=== PATIENT | female | born 1975 | race Caucasian/White ===

== ENCOUNTER → 2020-10-13 09:45 | Outpatient (CLI) | payer OTHER, SELFPAY ==
[2020-10-14 08:52] LABS: COVID19 -Nasal RAPID Negative (Negative)
== END ==
PROVIDERS: Family Provider Family Medicine; PCP Family Medicine; Visit Provider Physician Assistant
DX: Z20.822 Contact with and (suspected) exposure to COVID-19 (principal)
CPT/HCPCS: 87635

== ENCOUNTER → 2020-11-24 15:04 | Outpatient (CLI) | payer OTHER, SELFPAY ==
[2020-11-24 16:49] LABS: COVID19 -Nasal RAPID Negative (Negative)
== END ==
PROVIDERS: Family Provider Family Medicine; PCP Family Medicine; Visit Provider Nurse Practitioner
DX: Z01.812 Encounter for preprocedural laboratory examination (principal); Z20.822 Contact with and (suspected) exposure to COVID-19
CPT/HCPCS: 87635

== ENCOUNTER 2020-11-26 14:01 | Day surgery (SDC) | payer OTHER, SELFPAY ==
--- NOTE | 2020-11-26 | PATH_ITS ---
[facility] Accession Number: [id number] . 01 Material submitted: . PART A: colon - ASCENDING COLON POLYP PART B: colon - DESCENDING COLON POLYP . 01 Clinical history: . SDC . 02 Diagnosis: A. Ascending Colon, Polyp: Colonic mucosa with prominent benign lymphoid aggregate. Negative for dysplasia or malignancy. . B. Descending Colon, Polyp: Tubular adenoma. MRV 12/01/2020 1248 Local . 02 Electronically signed: . Jd Gaines MD, PhD, Pathologist NPI- [id number] . 01 Gross description: . Part A: ASCENDING COLON POLYP: Received in formalin is 1 fragment(s) of chavarria, soft tissue measuring 0.3 x 0.2 x 0.2 cm submitted entirely in 1 cassette(s) Part B: DESCENDING COLON POLYP: Received in formalin are 2 fragment(s) of chavarria, soft tissue measuring 0.2 x 0.2 x 0.2 cm to 0.5 x 0.4 x 0.3 cm submitted entirely in 1 cassette(s) /JULIANNA 11/29/2020 0144 Local . 02 Pathologist provided ICD-10: K58.0, K63.5, D12.4 . 02 CPT . 190354, [id number] Performed at: 01 [facility] [address], [place], [place] [id number] MD Jesus Willoughby MD Phone: [phone] Performed at: 02 [facility] [place] [address] [place], [place] [id number] MD Jordana Michael MD Phone: [phone]
--- NOTE | 2020-11-26 08:19 | PM.HP.1 ---
History of Present Illness History of Present Illness Date Patient Seen: 11/26/20 Chief complaint: SDC Narrative: 44-year-old female with history of IBS D seen 07/24/2020 for IBS D and she is due for colon cancer screening due to the family history of colon cancer in her mother. No new GI symptoms since that office visit Exam Narrative Exam Narrative: General: Patient is well developed, not in apparent distress Cardiovascular: Regular rate and rhythm, no murmurs, rubs, or gallops; no evidence of edema; no palpable abdominal aortic aneurysm Gastrointestinal: Normoactive bowel sounds, soft, nontender, nondistended, no rebound tenderness, no hepatosplenomegaly, no evidence of hernia Assessment & Plan Assessment & Plan narrative: 44-year-old female with history of IBD and family history of colon cancer in her mother who is here for repeat screening. Procedure will be done with monitored anesthesia care given failed conscious sedation during last colonoscopy Regarding the procedure(s), the risks and potential complications, benefits, and alternatives (including not doing the procedure) were discussed with the patient. The risks include but are not limited to bleeding, splenic injury, infection, perforation which may require surgical intervention, missed lesions, and adverse reactions to sedative medicines. After a question and answer period, the patient agreed to proceed with the procedure(s) and gives informed consent.
[2020-11-26 14:20] VITALS: BP 141/96; PULSE 99; RESP 14; TEMP 37.2; O2SAT 100; BMI 39.5
[2020-11-26] MEDS: SODIUM CHLORIDE 0.9% 1,000 ML 70 ML IV (14:46)
--- NOTE | 2020-11-26 14:55 | P.OP.ENDO_ITS ---
Operative Date/Time/Diagnoses Date of procedure: 11/26/20 Procedure Notes Procedure in detail: Surgeon: Master Del Valle MD Procedure: Colonoscopy with polypectomy Preoperative diagnosis: Colon cancer screening, family history colon cancer in first-degree relative less than 60 years old Postoperative diagnosis: Colon polyps x2 status post polypectomy, grade 1 internal hemorrhoid Medications: Monitored anesthesia care due to failed conscious sedation Preanesthesia Assessment An H and P was performed/updated and the Px?s ASA class is 3. The procedure was discussed in detail with the patient. The potential risks and complications including infection, bleeding, missed lesions, perforation, need for surgery in case of perforation, prolonged hospital stay, and were explained. A brief question and answer period was allotted and once all questions were answered, informed consent was obtained. The patient was brought back to the procedure room and placed on standard monitoring. The patient?s vital signs were monitored continuously throughout the entire procedure. Prior to starting, a timeout was performed to confirm the patient?s identity, allergies, medications, and procedure. Procedure in detail The patient was placed in left lateral decubitus position and once adequate sedation was obtained a DON was performed. The digital rectal examination did not reveal any palpable lesions. The tip of the colonoscope was placed in the anal canal and advanced without difficulty all the way to the cecum which was identified by the appendiceal orifice and the ileocecal valve. Careful examination of all luque of the colon was performed with irrigation of any resid ual stool. In the ascending colon, there was note of a 2 mm sessile polyp which was removed by means of cold Jumbo forceps. Resection and retrieval was complete with minimal bleeding In the descending colon, there was note of a 4 mm sessile polyp which was removed by means of cold snare. Resection retrieval was complete with minimal bleeding Retroflexion was performed in the rectum which revealed grade 1 internal hemorrhoids The patient tolerated the procedure well and will be brought back to the recovery area to be discharged once criteria are met. The prep was judged to be good and adequate to identify polyps less than 5 mm. The withdrawal time was 9 minutes. Complications There were no complications and estimated blood loss was minimal. Recommendations: Resume previous diet Continue outPx medications Follow up pathology results Repeat colonoscopy in 5 years for surveillance An emergency contact number was given to the patient for any complications related to the procedure
[2020-11-26 15:15] VITALS: BP 118/71; PULSE 87; RESP 19; TEMP 36.9; O2SAT 98
[2020-11-26 15:20] VITALS: BP 120/83; PULSE 92; RESP 17; O2SAT 99
[2020-11-26 15:35] VITALS: BP 128/83; PULSE 79; RESP 16; TEMP 36.6; O2SAT 100
--- NOTE | 2020-11-26 15:53 | SUR.PHASEII ---
Pt arrived to [facility], wanting to go home. Manjinder discussed d/c instruction, belly sioft, no nausea, pt dressed and left unit in stable condition.
== END 2020-11-26 15:45 | disposition home or self-care (01) ==
PROVIDERS: Internal Medicine Gastroenterology; Family Provider Family Medicine; PCP Family Medicine; Referring Provider Student in an Organized Health Care Education/Training Program; Visit Provider Student in an Organized Health Care Education/Training Program
PROC: 0DJD8ZZ Inspection of Lower Intestinal Tract, Via Natural or Artificial Opening Endoscopic (ICD-10-PCS; CPT 45378; principal; 2020-11-26 15:00)
DX: Z12.11 Encounter for screening for malignant neoplasm of colon (principal); Z80.0 Family history of malignant neoplasm of digestive organs; K64.0 First degree hemorrhoids; D12.4 Benign neoplasm of descending colon
CPT/HCPCS: 45380; 45385

== ENCOUNTER → 2023-02-09 09:18 | Outpatient (CLI) | payer OTHER, SELFPAY ==
--- NOTE | 2023-02-09 | DI.NM.S_ITS ---
PROCEDURE: NM HIDA WITH CCK PHARMACEUTICAL: 5.5 mCi Tc-99m mebrofenin IV; 2.5 mcg CCK IV. INDICATIONS: Unspecified abdominal pain TECHNIQUE: Following intravenous administration of Tc-99m mebrofenin, sequential anterior abdominal images were obtained. To evaluate the contractile response of the gallbladder in response to Cholecystokinin (CCK), sincalide (0.02 ?g/kg) was administered by slow intravenous infusion approximately 60 minutes after the administration of the radiopharmaceutical. Sequential imaging was continued for 30 minutes after the start of CCK infusion. Gallbladder ejection fraction was calculated. COMPARISON: None. FINDINGS: Biliary scan: There is normal tracer uptake and excretion by the liver. There is normal visualization of the intrahepatic ducts, common bile duct, and gallbladder. There is normal tracer transit into the duodenum. CCK stimulation: There is appropriate contractile response of the gallbladder to CCK infusion. The calculated gallbladder ejection fraction is 58% ; normal values are above 35%. It has been shown that any patient abdominal pain after CCK administration is related to the rate of CCK injection, rather than to any underlying gallbladder disease (Clinical Nuclear Medicine 2012; 37: 63-70. Journal of Nuclear Medicine 2014; 55: 1-9). IMPRESSION: Normal HIDA scan. No evidence of cholecystitis. Dictated by: Ayana Pina M.D. on 02/09/2023 at 12:06 Transcribed by: ABEL on 02/09/2023 at 12:07 Approved by: Ayana Pina M.D. on 02/09/2023 at 16:01
== END ==
PROVIDERS: Family Provider Family Medicine; PCP Physician Assistant; Referring Provider Internal Medicine; Visit Provider Internal Medicine
DX: R10.9 Unspecified abdominal pain (principal)
CPT/HCPCS: 78227; A9537; J2805

== ENCOUNTER 2023-03-27 13:58 | Emergency (ER) | payer OTHER, SELFPAY ==
[2023-03-27 14:11] VITALS: BP 171/98; PULSE 112; RESP 19; TEMP 36.6; O2SAT 96; BMI 39.9
--- NOTE | 2023-03-27 14:57 | ED.GENADULT ---
HPI - General Adult General Chief complaint: Abdominal Pain Stated complaint: ABD PAIN, THROBBING, LIGHT HEADED Time Seen by Provider: 03/27/23 14:34 Source: patient Mode of arrival: Ambulatory History of Present Illness HPI narrative: Patient is a 47-year-old female. Has had a fairly extensive abdominal pain history. Has been seen multiple times at multiple emergency departments and also GI doctors. Has had upper endoscopy and colonoscopy and CT scans and ultrasounds without a definitive diagnosis. She did recently have an upper endoscopy done by GI. She states she does have a history of irritable bowel. She is here because she has both worsening and new discomfort on the left side of her abdomen. No urinary symptoms. No change in bowel habits. Some nausea but no vomiting. States she is also feeling lightheaded. No skin changes. Related Data Allergies Allergy/AdvReac Type Severity Reaction Status Date / Time No Known Drug Allergies Allergy Verified 03/27/23 14:11 Review of Systems Constitutional Constitutional: Reports system reviewed and no additional complaints, except as documented Cardiovascular Cardiovascular: Reports system reviewed and no additional complaints, except as documented Respiratory Respiratory: Reports system reviewed and no additional complaints, except as documented Gastrointestinal Gastrointestinal: Reports system reviewed and no additional complaints, except as documented Genitourinary Genitourinary: Reports system reviewed and no additional complaints, except as documented Integumentary/Breasts Skin/Breast: Reports system reviewed and no additional complaints, except as documented Neurologic Neurologic: Reports system reviewed and no additional complaints, except as documented Hematologic/Lymphatic On Anticoagulants: No Patient History Social History Smoking Status: Current every day smoker alcohol intake: current Smoking Status: Current every day smoker alcohol intake frequency: 3 or more drinks per day Substance Use Type: does not use Exam Initial Vital Signs Initial Vital Signs: Vital Signs Temperature 97.8 F 03/27/23 14:11 Pulse Rate 112 H 03/27/23 14:11 Respiratory Rate 19 03/27/23 14:11 Blood Pressure 171/98 H 03/27/23 14:11 Pulse Oximetry 96 03/27/23 14:11 Oxygen Delivery Method Room Air 03/27/23 14:11 Const General: cooperative, comfortable and No ill appearing HENMT Head: normal to inspection and normocephalic Resp Effort & Inspection: normal respiratory effort Auscultation: clear to auscultation bilaterally Cardio Rate: regular rate Rhythm: regular rhythm GI Inspection: normal to inspection Skin General: no rashes or lesions noted Neuro General: patient alert, patient awake, patient oriented x3 and moves all extremities Speech: speech normal Gait: normal gait Extrem General: capillary refill normal Course Orders Ordered: ED Orders 03/27/23 14:30 EKG-12 Lead Stat 03/27/23 15:00 Complete Blood Count AUTO DIFF Stat Comprehensive Metabolic Panel Stat Lipase Stat Ondansetron HCl (Ondansetron 4 Mg Odt) 4 mg PO NOW PRN PRN Reason: Nausea And Vomiting Ondansetron HCl (Ondansetron 4 Mg/2 Ml Inj) 4 mg IV NOW PRN PRN Reason: Nausea And Vomiting Vital Signs Vital signs: Vital Signs - 8 hr 03/27/23 14:11 Temperature 97.8 F Pulse Rate 112 H Respiratory Rate 19 Blood Pressure 171/98 H Pulse Oximetry 96 Oxygen Delivery Method Room Air Medical Decision Making Lab Data Lab results reviewed: Yes I reviewed the patient's lab results. 03/27/23 15:00 03/27/23 15:00 Labs: Lab Results 03/27/23 03/27/23 Range/Units 15:00 15:00 WBC 13.6 H (4.5-11.0) X10^3/uL RBC 5.24 H (4.0-5.2) X10^6/uL Hgb 16.7 H (12.0-16.0) g/dL Hct 49.1 H (36-46) % MCV 93.6 (80-100) fL MCH 31.8 (26-34) PG MCHC 34.0 (30-36) % RDW 13.3 (11.6-14.8) % Plt Count 328 (150-400) X10^3/uL Neut % (Auto) 81.9 H (50-75) % Lymph % (Auto) 11.0 L (25-40) % Levy % (Auto) 6.2 (3-14) % Eos % (Auto) 0.2 L (2-4) % Baso % (Auto) 0.7 (0-2) % Neut # (Auto) 26975 H (8056-9090) /uL Lymph # (Auto) 1500 (5900-6520) /uL Levy # (Auto) 900 (0-900) /uL Eos # (Auto) 0 (0-450) /uL Baso # (Auto) 100 (0-100) /uL Sodium 138 (137-145) mmol/L Potassium 4.0 (3.4-5.1) mmol/L Chloride 104 (98-107) mmol/L Carbon Dioxide 24 (22-32) mmol/L BUN 12 (7-17) mg/dL Creatinine 0.69 (0.52-1.04) mg/dL Estimated GFR > 60 (>60) mL/min BUN/Creatinine Ratio 17.4 (6-22) Glucose 99 (70-100) mg/dL Calcium 9.3 (8.4-10.2) mg/dL Total Bilirubin 0.9 (0.2-1.3) mg/dL AST 28 (14-36) IU/L ALT 36 H (<35) IU/L Alkaline Phosphatase 90 (38-126) U/L Total Protein 7.7 (6.3-8.2) g/dL Albumin 4.2 (3.5-5.0) g/dL Globulin 3.5 (1.7-4.1) g/dL Albumin/Globulin Ratio 1.2 (1.0-2.8) Lipase 82 (23-300) U/L Point of Care Testing Test Results Negative Urine Dip Bedside Urine Glucose Negative Bedside Urine Bilirubin - Negative Bedside Urine Ketone +/- 5 Urine Specific [place] 1.015 Bedside Urine Occult Blood - Negative Bedside Urine pH 6.0 Bedside Urine Protein - Negative Bedside Urine Urobilinogen - Negative Bedside Urine Nitrite - Negative Bedside Urine Leukocytes - Negative Esterase Point of care testing: Point of Care Testing Test Results Negative Urine Dip Bedside Urine Glucose Negative Bedside Urine Bilirubin - Negative Bedside Urine Ketone +/- 5 Urine Specific [place] 1.015 Bedside Urine Occult Blood - Negative Bedside Urine pH 6.0 Bedside Urine Protein - Negative Bedside Urine Urobilinogen - Negative Bedside Urine Nitrite - Negative Bedside Urine Leukocytes - Negative Esterase MDM Narrative Medical decision making narrative: Patient does have a benign exam. She is had symptoms of this area for the past several months. She is no skin changes over the area. She does have leukocytosis but no specific source of infection. She does have an appointment her primary doctor for Tuesday of this week. She has had some rheumatologic labs ordered by her primary doctor. She is had multiple workups to include CT scans and ultrasounds and also has had upper endoscopies. She is had a colonoscopy in the past as well. I do feel that we should hold on any radiologic studies for now. There was no indication for antibiotics. Unfortunately we do not have a specific diagnosis for her discomfort. Will have her keep her appointment with her primary doctor. She was given return precautions and follow-up instructions. She expressed understanding and agreement. Discharge Plan Departure Patient Disposition: Home Clinical Impression: Flank pain Instructions: DI for Flank Pain Activity Restrictions/Additional Instructions: I understand your frustration with not having a definitive diagnosis of what is causing your discomfort. I do think that you are on the right track. I do recommend that you keep your scheduled appointment with your primary doctor later this week. Talk with your primary doctor about a referral to see Rheumatology. Return to the emergency department for new or worsening symptoms. Referrals: Chayo Nunez PA-C [Primary Care Provider] - Stand Alone Forms: Patient Portal/API
[2023-03-27 15:20] LABS: Add Manual Diff / Slide Review NO; Basophils Absolute Auto 100 /uL (0-100); Basophils Percent Auto 0.7 % (0-2); Eosinophils Absolute Auto 0 /uL (0-450); Eosinophils Percent Auto 0.2 % (2-4); Hematocrit 49.1 % (36-46); Hemoglobin 16.7 g/dL (12.0-16.0); Lymphocytes Absolute Auto 1500 /uL (1100-4500); Mean Corpuscular Hemoglobin 31.8 PG (26-34); Mean Corpuscular Volume 93.6 fL (80-100); Monocytes Absolute Auto 900 /uL (0-900); Monocytes Percent Auto 6.2 % (3-14); Neutrophils Absolute Auto 11200 /uL (1500-7000); Neutrophils Percent Auto 81.9 % (50-75); Platelet Count 328 X10^3/uL (150-400); Red Blood Cell Count 5.24 X10^6/uL (4.0-5.2); Red Cell Distribution Width 13.3 % (11.6-14.8); White Blood Cell Count 13.6 X10^3/uL (4.5-11.0)
[2023-03-27 15:23] LABS: Alanine Aminotransferase 36 IU/L (<35); Albumin 4.2 g/dL (3.5-5.0); Albumin Globulin Ratio 1.2 (1.0-2.8); Alkaline Phosphatase 90 U/L (38-126); Aspartate Aminotransferase 28 IU/L (14-36); BUN Creatinine Ratio 17.4 (6-22); Bilirubin Total 0.9 mg/dL (0.2-1.3); Blood Urea Nitrogen 12 mg/dL (7-17); Calcium 9.3 mg/dL (8.4-10.2); Carbon Dioxide 24 mmol/L (22-32); Chloride 104 mmol/L (98-107); Estimated Glomerular Filt Rate > 60 mL/min (>60); Globulin 3.5 g/dL (1.7-4.1); Glucose 99 mg/dL (70-100); HEMOLYSIS 19 (0-50); Lipase 82 U/L (23-300); Sodium 138 mmol/L (137-145); Total Protein 7.7 g/dL (6.3-8.2)
--- NOTE | 2023-03-27 16:41 | PC.NURSE ---
Pt denies pain or nausea, states only complaint is that left abdomen doesn't feel right. I think it's my anxiety. Ambulated to with steady gait and provided urine specimen.
[2023-03-27 17:36] VITALS: BP 154/74; PULSE 98; RESP 16; O2SAT 97
== END 2023-03-27 17:36 | disposition home or self-care (01) ==
PROVIDERS: Emergency Provider Emergency Medicine; Family Provider Family Medicine; PCP Physician Assistant
DX: R10.9 Unspecified abdominal pain (principal)
CPT/HCPCS: 80053; 81003; 81025; 83690; 85025; 99282; 99283

== ENCOUNTER → 2023-04-13 09:30 | Outpatient (CLI) | payer OTHER, SELFPAY ==
--- NOTE | 2023-04-15 02:31 | DI.NM.S_ITS ---
DATE OF SERVICE: 04/13/2023 PROCEDURE: Exercise perfusion study. INDICATION: Chest pain. RADIOPHARMACEUTICAL: 27.0 millicurie technetium-99m Myoview IV was injected at stress and 25.9 millicurie technetium-99m Myoview IV was injected at rest. CARDIAC STRESS: The patient underwent exercise perfusion study under the supervision of an attending staff. The patient walked on Fernando protocol for 7 minutes and 38 seconds, achieved maximum heart rate of 169, which was 98% of target heart rate. Normal blood pressure response. Resting blood pressure 110/88 mmHg. Peak blood pressure 168/90 mmHg. Achieved 10.1 METs of workload. Baseline rhythm was sinus. During stress, no convincing ischemic changes seen. No significant arrhythmias seen. RAW DATA: There is breast shadow seen. Increased subdiaphragmatic activity. GATED STUDY: Resting LV ejection fraction 75% and stress LV ejection fraction 90%. No obvious wall motion abnormalities. Resting end- diastolic volume 87 mL. Lung/heart ratio 0.42, which is within normal limits. The patient's weight is 254 pounds. MYOCARDIAL PERFUSION SCAN: Stress supine, resting supine and stress prone images were compared to each other. Stress supine and resting supine images revealed small size, mildly decreased perfusion of distal anterior wall and anteroapex which got completely resolved during stress prone images suggestive of breast tissue attenuation artifact. No convincing ischemia or infarction. CONCLUSION: This is a normal myocardial perfusion study with evidence of breast tissue attenuation artifact, which got resolved during stress prone images. Stress prone images revealed normal myocardial perfusion. The patient walked on Fernando protocol for 7 minutes and 38 seconds. WILIAM positive 4% with diminished exercise tolerance. Normal hemodynamic response. Preserved left ventricular function. No significant arrhythmias. No chest pain. Overall, low-risk exercise stress test. Saumya Adams - MARIEL/suleman/belen doc#: [id number]/job#: [id number] dd: 04/14/2023 17:11:00 dt: 04/15/2023 02:25:00 DICTATING MD/COPIES TO: Ashwin Richardson MD COPIES MNE: AHSAN;
== END ==
PROVIDERS: Family Provider Family Medicine; PCP Physician Assistant; Referring Provider Physician Assistant; Visit Provider Physician Assistant
DX: R07.89 Other chest pain (principal)
CPT/HCPCS: 78452; 93017; A9502

== ENCOUNTER → 2023-10-28 08:36 | Outpatient (CLI) | payer OTHER, SELFPAY ==
--- NOTE | 2023-10-28 08:37 | DI.MRI.S_ITS ---
PROCEDURE: MR LUMBAR SPINE WO CON INDICATIONS: Spondylolisthesis, lumbar region TECHNIQUE: Noncontrast sagittal T1 spin echo and T2 fast echo, sagittal STIR, and T2 fast spin echo through the lumbar spine. In cases with scoliosis, additional coronal T2 fast spin echo may be performed. COMPARISON: Outside Film, CR, XR LUMBAR SPINE 2 OR 3 VIEWS, 04/18/2023, 10:24. FINDINGS: Image quality: Excellent. Alignment and Curvature: There is normal bony alignment. Bone Marrow: Marrow is of normal overall signal. No acute vertebral body compression fractures. Spinal Cord: Conus medullaris terminates at the L1 level. Visualized cord demonstrates normal signal and size. Paraspinous Soft Tissues: No canal T12-L1: Mild facet hypertrophy. L1-L2: Mild facet hypertrophy. No canal stenosis or foraminal stenosis. L2-L3: Mild facet hypertrophy. No canal stenosis or foraminal stenosis. L3-L4: Facet hypertrophy. No canal stenosis or foraminal stenosis. L4-L5: Annulus tear plus disc bulge. Facet hypertrophy. Mild canal stenosis. No significant foraminal stenosis. L5-S1: There is a broad-based disc bulge with superimposed mild left paracentral disc protrusion. Both S1 nerve roots are abutted in the lateral recesses. There is posterior displacement and a degree of impingement on the left S1 nerve root in the left lateral recess. [id number] bilateral foraminal narrowing. Bilateral facet hypertrophy. No central canal stenosis. IMPRESSION: 1. There is multilevel underlying facet arthropathy. 2. At L5-S1, there is a broad-based disc bulge with superimposed left paracentral disc protrusion. There is a degree of impingement on the left S1 nerve root in the left lateral recess. 3. Mild canal stenosis at L4-L5. Dictated by: Maged Venegas M.D. on 10/28/2023 at 10:22 Approved by: Maged Venegas M.D. on 10/28/2023 at 10:36
--- NOTE | 2023-10-28 08:37 | DI.MRI.S_ITS ---
PROCEDURE: MR CERVICAL SPINE WO CON INDICATIONS: Spondylolisthesis, cervical region TECHNIQUE: Noncontrast sagittal T1 spin echo and T2 fast spin echo, sagittal STIR, foraminal oblique sagittal T2 fast spin echo, and axial gradient echo or T2 fast spin echo through the cervical spine. COMPARISON: [facility], CR, XR CERVICAL SPINE WITH FLEXION EXTENSION, 10/17/2023, 13:44. FINDINGS: Image quality: Excellent. Alignment and Curvature: There is normal bony alignment. Bone Marrow: Marrow demonstrates normal overall signal. Spinal Cord: Visualized spinal cord has normal size and signal. No cerebellar tonsillar herniation. Paraspinous Soft Tissues: No paravertebral masses. Prevertebral soft tissues are normal in thickness. C2-C3: No canal stenosis or foraminal stenosis. C3-C4: Prominent right uncovertebral joint hypertrophy, with associated flattening of the right ventral cord.. Moderate central canal stenosis. AP diameter of the central canal is 8.4 mm. There is moderate to severe right foraminal narrowing with a degree of right foraminal C4 nerve root impingement. Mild to moderate left foraminal narrowing. C4-C5: Disc bulge with mild superimposed central posterior disc protrusion indenting on the cord. Moderate to severe canal stenosis. AP diameter of the central canal is 7.0 mm. No significant foraminal narrowing. C5-C6: Prominent left paracentral osteophyte indenting on the cord. There is moderate to severe central canal stenosis, measuring 7.0 mm. There is prominent left uncovertebral joint hypertrophy. The right foramen is patent. There is moderate left foraminal narrowing with flattening deformity on the exiting left C6 nerve root. C6-C7: Disc bulge. Mild canal stenosis. AP diameter of the central canal is 9.5 mm. Foramina are patent. C7-T1: No canal stenosis or foraminal stenosis. IMPRESSION: 1. Canal stenosis is moderate at C3-C4, moderate to severe at C4-C5, moderate to severe at C5-C6, and mild at C6-C7. 2. Multilevel foraminal narrowing as described above. Findings include moderate to severe right foraminal narrowing at C3-C4. Dictated by: Maged Venegas M.D. on 10/28/2023 at 10:37 Approved by: Maged Venegas M.D. on 10/28/2023 at 10:51
== END ==
LOC: MRI 08:37
PROVIDERS: Family Provider Family Medicine; PCP Student in an Organized Health Care Education/Training Program; Referring Provider Physician Assistant; Visit Provider Physician Assistant
DX: M51.37 Other intervertebral disc degeneration, lumbosacral region (principal); M51.27 Other intervertebral disc displacement, lumbosacral region; M48.061 Spinal stenosis, lumbar region without neurogenic claudication; M47.816 Spondylosis without myelopathy or radiculopathy, lumbar region; M47.817 Spondylosis without myelopathy or radiculopathy, lumbosacral region; M48.07 Spinal stenosis, lumbosacral region; M48.02 Spinal stenosis, cervical region; M47.812 Spondylosis without myelopathy or radiculopathy, cervical region; M43.12 Spondylolisthesis, cervical region; G90.9 Disorder of the autonomic nervous system, unspecified
CPT/HCPCS: 72141; 72148

== ENCOUNTER → 2024-01-08 09:40 | Outpatient (CLI) | payer OTHER, SELFPAY ==
[2024-01-08 10:28] LABS: Influenza A - CEPHEID Flu A NEGATIVE (NEGATIVE); Influenza B - CEPHEID Flu B NEGATIVE (NEGATIVE); Respiratory Syncytial Virus Negative (Negative)
[2024-01-08 11:25] LABS: COVID-19 CEPHEID 4-PLEX PCR Negative (Negative)
== END ==
PROVIDERS: Family Provider Family Medicine; PCP Student in an Organized Health Care Education/Training Program; Visit Provider Physician Assistant Medical
DX: R06.02 Shortness of breath (principal)
CPT/HCPCS: 0241U

== ENCOUNTER 2024-01-11 10:14 | Outpatient (CLI) | payer OTHER, SELFPAY ==
[2024-01-11] VITALS (7 sets, daily range): BP systolic 128–157; BP diastolic 72–83; PULSE 50–60; RESP 13–20; TEMP 36.3; O2SAT 96–100
--- NOTE | 2024-01-11 10:15 | DI.RAD.S_ITS ---
PROCEDURE: PAIN L/S FACET INJ/BLK 1ST SIMIN INDICATIONS: SPONDYLOSIS COMPARISON: None. FINDINGS: Fluoroscopic spot filming was performed to verify placement of spinal needles at the bilateral L3, four, and five level(s), as labeled on the films. Appropriate location(s) of the needle tip(s) was confirmed by injection of iodinated contrast. IMPRESSION: Fluoroscopy for bilateral L3 through 5 medial branch blocks. Dictated by: Eri Bran M.D. on 01/11/2024 at 16:01 Approved by: Eri Bran M.D. on 01/11/2024 at 16:01
[2024-01-11] MEDS: BUPIVACAINE 0.5% (PF) 10 ML VIAL 5 ML INJ (11:11)
[2024-01-11] MEDS: iopamidoL 15 ML VIAL 3 ML INJ (11:11)
--- NOTE | 2024-01-11 11:55 | P.PCN_ITS ---
Date/Time/Diagnoses Date of procedure: 01/11/24 Time of procedure: 11:00 Procedure Notes Physician: José Argueta Total Fluoroscopy time (seconds): 34 Total sedation minutes: 0 Procedure in detail & Post-procedure care: Bilateral L3, 4, 5 Lumbar Medial Branch Blocks Indications: Ruthie is presenting for treatment of lumbar spondylosis with low back pain. Preoperative diagnosis: Lumbar spondylosis Postoperative diagnosis: Same Pre-procedure History: F Patient demonstrates today moderate to severe non- radicular back pain without neurologic deficit aggravated by hyperextension yes Back pain greater than leg pain? F yes Patient today has tenderness over the suspected joint(s) yes History of post-traumatic injury? no Hypertrophic arthropathy F yes Focused Examination: Ax3 Mood and affect are normal Vital Signs: VSS Consent: Following review of allergies and potential side effects/complications, including, but not necessarily limited to, infection, allergic reaction, local tissue breakdown, stroke, temporary or permanent nerve injury, paralysis, and possible , the patient indicated that they understood and agreed to proceed.? An informed consent document was signed by the patient, witnessed by a nurse and placed in the patient's chart.? Additionally, other treatment options including medications and physical therapy were reviewed with the patient. All questions were answered. Site was then marked. Anesthesia: Local Position: Prone Monitoring: NIBP, Pulse oximetry, 3 lead EKG Needle used: 22 ga, 5 inch spinal needle Contrast: Isovue 300M Injectate: 0.5% bupivacaine 1 mL per site Procedure: The patient was brought into the procedure room and positioned into the prone position. Skin was prepped with a Chloraprep solution, allowed to air dry, and then draped in sterile fashion.? The right L4-5 and L5-S1 facet joints were visually identified with fluoroscopy. Lidocaine 1% was used to anesthetize the skin over each target destination with a 25ga needle. A 22 ga, 5 inch spinal needle was advanced to the location of the medial branch at the junction of the superior articular process and the transverse process at L4,5 and the base of the SAP of the sacrum using intermittent fluoroscopy in the AP view. Isovue 300M contrast 0.2ml was injected at each level outlining the medial borders for each level and the base of the SAP of the sacrum in the AP and lateral views. There was no evidence of vascular or intrathecal uptake. The above injectate was slowly injected at each target destination. The left L4-5 and L5-S1 facet joints were visually identified with fluoroscopy. Lidocaine 1% was used to anesthetize the skin over each target destination with a 25ga needle. A 22 ga, 5 inch spinal needle was advanced to the location of the medial branch at the junction of the superior articular process and the transverse process at L4,5 and the base of the SAP of the sacrum using intermittent fluoroscopy in the AP view. Isovue 300M contrast 0.2ml was injected at each level outlining the medial borders for each level and the base of the SAP of the sacrum in the AP and lateral views. There was no evidence of vascular or intrathecal uptake. The above injectate was slowly injected at each target destination. At the end of the procedure the needles were withdrawn and Band- Aids were applied for a dressing. Post Procedure: Patient was taken to the recovery and monitored. The patient was provided a Pain Log to continue to record the patient's response to the target-specific procedure prior to the patient's follow-up visit with the referring physician. Patient was stable upon discharge. Detailed post procedure instructions were provided. Patient was asked to call in the event of worsening pain, fever, weakness, numbness or bladder or bowel incontinence. Based on the medial branches blocked today, if the patient meets insurance criteria for radiofrequency, the treatment should result in the denervation of the bilateral L4-5 and L5-S1 facet joint nerves. We would expect to denervate a total of 4 facets during the radiofrequency ablation.
== END 2024-01-11 11:34 | disposition home or self-care (01) ==
PROVIDERS: Family Provider Family Medicine; PCP Student in an Organized Health Care Education/Training Program; Referring Provider Anesthesiology; Visit Provider Anesthesiology
DX: M47.816 Spondylosis without myelopathy or radiculopathy, lumbar region (principal)
CPT/HCPCS: 64493; 64494

== ENCOUNTER → 2024-02-14 10:35 | Outpatient (CLI) | payer OTHER, SELFPAY ==
--- NOTE | 2024-02-14 | DI.RAD.S_ITS ---
PROCEDURE: XR DEXA AXIAL SKELETON INDICATIONS: SCREENING FOR OSTEOPOROSIS COMPARISON: None. FINDINGS: Lumbar Spine: Bone mineral density 1.032 g/cm2, T score -0.1, baseline. Left Hip: Bone mineral density 0.987 g/cm2, T score 0.4, baseline. Left Femoral Neck: Bone mineral density is 0.816 g/cm2, T score -0.3, baseline. Right Hip: Bone mineral density 0.995 g/cm2, T score 0.4, baseline. Right Femoral Neck: Bone mineral density 0.855 g/cm2, T score 0.1, baseline. Fracture Risk Calculation (when applicable): Not calculated due to normal bone mineral density. (T score greater or equal to -1.0 to: NORMAL) (T score from -1.1 to -2.4: OSTEOPENIA) (T score less than or equal to -2.5: OSTEOPOROSIS) IMPRESSION: Normal bone mineral density. Follow-up guidelines as follows: Osteoporosis: Consider a repeat DEXA and Vertebral Fracture Assessment (VFA) exam in 2 years or sooner if medically necessary, to reassess this patient's status. Osteopenia: Consider a repeat DEXA in 2-3 years to reassess this patient's status, or if there is a new clinical indication. Normal: Consider a repeat DEXA in 5 years or sooner, or if there is a new clinical indication. Dictated by: Albino Rincon M.D. on 02/14/2024 at 12:14 Approved by: Albino Rincon M.D. on 02/14/2024 at 12:15
== END ==
PROVIDERS: Family Provider Family Medicine; PCP Student in an Organized Health Care Education/Training Program; Referring Provider Student in an Organized Health Care Education/Training Program; Visit Provider Student in an Organized Health Care Education/Training Program
DX: Z13.820 Encounter for screening for osteoporosis (principal); Z30.42 Encounter for surveillance of injectable contraceptive
CPT/HCPCS: 77080

== ENCOUNTER → 2024-05-22 06:35 | Outpatient (CLI) | payer OTHER, SELFPAY ==
--- NOTE | 2024-05-22 | DI.US.S_ITS ---
PROCEDURE: US PELVIC COMPLETE INDICATIONS: DUB TECHNIQUE: Real-time scanning was performed of the pelvic organs, with image documentation. Additional endovaginal scanning was necessary due to incomplete visualization of the adnexal and endometrial structures by transabdominal scanning. COMPARISON: None. FINDINGS: Uterus: Uterus is anteverted and normal in size at 7.9 x 3.4 x 5.1 cm. The myometrium is homogeneous. The endometrium measures 4.4 mm combined thickness. Ovaries: The right ovary is not visualized. The left ovary measures 4.0 x 1.7 x 3.0 cm, with a calculated ovarian volume of 10.6 cc. A simple cyst/dominant follicle in the left ovary measures 2.6 x 2.0 x 2.9 cm. Less than 12 follicles can be seen in the left ovary. No adnexal masses are seen. Other: No pathologic free abdominal or pelvic fluid. IMPRESSION: 1. No significant sonographic abnormality is seen to account for the reported clinical symptoms. 2. Left ovarian 2.9 cm simple cyst. No dedicated follow-up imaging is required. 3. Right ovary is not visualized. No adnexal mass. Approved by: Antonio Hernandez M.D. on 05/22/2024 at 10:51
== END ==
LOC: US 06:35
PROVIDERS: Family Provider Family Medicine; PCP Student in an Organized Health Care Education/Training Program; Referring Provider Naturopath; Visit Provider Naturopath
DX: N93.9 Abnormal uterine and vaginal bleeding, unspecified (principal); N83.292 Other ovarian cyst, left side
CPT/HCPCS: 76830; 76856